=== PATIENT | female | born 1975 | race Caucasian/White ===

== ENCOUNTER 2018-01-29 12:19 | Day surgery (SDC) | payer OTHER, MEDICARE ==
[~2018-01-29] VITALS: Ht 160 cm; Wt 77.5 kg
[~2018-01-29 12:19] MED LIST: ALBIPROI; AMIT50; BUSP5; CHLO10; CLON.5; Crutch1 EACH MISC; ESCI10; FOLI400; HYDMOR4; HYDPAM50; LEVFLO500; MEDR10; MERC50; METHOTREXATE; OMEP20ER; POLY500; PRED10; PROPRANOLOL; Percocet 5-3251 EACH PO; STOOL SOFTENER; TEGA2; TOPI100; TRAZ50; [UNRECOGNIZED DRUG - OTHER]
[2018-01-29] MEDS ORDERED: QUET25 (13:10)
[2018-01-29] MEDS ORDERED: Sudogest30 MG (13:10)
[2018-01-29] MEDS ORDERED: BIOTIN-D1 GM (13:10)
[2018-01-29] MEDS ORDERED: ZOLP5 (13:10)
== END 2018-01-29 15:45 | disposition home or self-care (01) ==
LOC: ORSCSDS 12:19
PROVIDERS: Podiatrist Foot & Ankle Surgery
PROC: 0QSN04Z Reposition Right Metatarsal with Internal Fixation Device, Open Approach (ICD-10-PCS; principal; 2018-01-29 13:30)
DX: S92.351A Displaced fracture of fifth metatarsal bone, right foot, initial encounter for closed fracture (principal); K21.9 Gastro-esophageal reflux disease without esophagitis; Z86.73 Personal history of transient ischemic attack (TIA), and cerebral infarction without residual deficits; R56.9 Unspecified convulsions; Z79.899 Other long term (current) drug therapy
CPT/HCPCS: C1713; J0171; J0690; J1100; J2250; J2405; J2710; J3010; J7120

== ENCOUNTER → 2018-11-10 | Outpatient (CLI) | payer MEDICARE ==
[~2018-11-10] MED LIST changes: +BIOTIN-D1 GM; +ESTR2 PO; +MELO7.5 PO; +PARO20 PO; +QUET25; +QUET300 PO; +Sudogest30 MG; +TOPI100 PO; +ZOLP5 PO
[2018-11-10 18:27] LABS: Alanine Aminotransfer (ALT/SGP 30 U/L (12-78); Albumin, Blood 3.7 g/dL (3.4-5.0); Alk Phos 24 U/L (50-136); Anion Gap 7 mmol/L (6-16); Aspartate Aminotrans (AST/SGOT 18 U/L (12-37); Bilirubin, Total 0.2 mg/dL (0.1-1.0); Blood Urea Nitrogen 19 mg/dL (8-24); Bun/Creatinine Ratio 18.3 (12.0-20.0); CO2, Blood 24 mmol/L (21-32); Calcium, Blood 8.4 mg/dL (8.5-10.1); Chloride, Blood 105 mmol/L (98-108); Creatinine, Blood 1.04 mg/dL (0.40-1.00); Globulin, Blood 3.8 g/dL (2.2-4.0); Glomerular Filtration Rate >60 (60-); Glucose, Blood 119 mg/dL (70-99); Potassium, Blood 3.5 mmol/L (3.5-5.5); Sodium, Blood 136 mmol/L (136-145); Total Protein, Blood 7.5 g/dL (6.4-8.2)
== END ==
LOC: LAB 16:52 → LAB SHORT 16:52
PROVIDERS: Internal Medicine Hematology & Oncology
DX: D50.0 Iron deficiency anemia secondary to blood loss (chronic) (principal)
CPT/HCPCS: 80053

== ENCOUNTER 2018-11-13 23:45 | Emergency (ER) | payer MEDICARE ==
[~2018-11-13] VITALS: Ht 160 cm; Wt 74.8 kg
[~2018-11-13 23:45] MED LIST changes: -ESTR2 PO; -MELO7.5 PO; -PARO20 PO; -QUET300 PO
[2018-11-14] MEDS ORDERED: PARO20 PO (04:30)
[2018-11-14] MEDS ORDERED: QUET300 PO (04:31)
[2018-11-14] MEDS ORDERED: MELO7.5 PO (04:33)
[2018-11-14] MEDS ORDERED: ESTR2 PO (04:34)
[2018-11-14 04:47] LABS: BASOPHILS ABSOLUTE AUTO 0.05 K/mm3 (0.00-0.23); BASOPHILS PERCENT AUTO 1 % (0-2); EOSINOPHILS PERCENT AUTO 1 % (0-6); IMMATURE GRAN ABSOLUTE AUTO 0.04 K/mm3 (0.00-0.10); IMMATURE GRAN PERCENT AUTO 0 % (0-1); LYMPHOCYTES ABSOLUTE AUTO 2.77 K/mm3 (0.84-5.20); LYMPHOCYTES PERCENT AUTO 25 % (21-46); MONOCYTES ABSOLUTE AUTO 0.54 K/mm3 (0.16-1.47); MONOCYTES PERCENT AUTO 5 % (4-13); Mean Corpuscular HGB 27.1 pg (26.0-34.0); Mean Corpuscular HGB Conc 32.4 g/dL (31.5-36.5); Mean Corpuscular Volume 84 fL (80-100); NEUTROPHILS ABSOLUTE AUTO 7.44 K/mm3 (1.96-9.15); NEUTROPHILS PERCENT AUTO 68 % (41-73); RDW Coefficient Variation 18.9 % (11.7-14.2); Red Blood Cell Count 4.06 M/mm3 (3.80-5.20); White Blood Cell Count 10.94 K/mm3 (4.00-11.30)
[2018-11-14 04:52] LABS: Mean Platelet Volume 10.2 fL (9.1-12.4); Platelet Count 202 K/mm3 (150-400)
== END 2018-11-14 06:00 | disposition home or self-care (01) ==
LOC: ER 23:45
PROVIDERS: Emergency Medicine
DX: G43.909 Migraine, unspecified, not intractable, without status migrainosus (principal); Z88.6 Allergy status to analgesic agent; Z88.8 Allergy status to other drugs, medicaments and biological substances; Z79.899 Other long term (current) drug therapy; Z79.891 Long term (current) use of opiate analgesic; Z86.73 Personal history of transient ischemic attack (TIA), and cerebral infarction without residual deficits
CPT/HCPCS: 36415; 85025; 96374; 99283-25; J1885

== ENCOUNTER 2020-08-24 09:03 | Day surgery (SDC) | payer MEDICARE ==
[~2020-08-24] VITALS: Ht 160 cm; Wt 81.4 kg
[~2020-08-24 09:03] MED LIST changes: +ESTR2 PO; +LISI5 PO; +MELO7.5 PO; +PARO20 PO; +QUET300 PO
[2020-08-24] MEDS ORDERED: AMLO5 PO (09:26)
[2020-08-24] MEDS ORDERED: MELATONIN5 M1 PO (09:26)
[2020-08-24] MEDS ORDERED: OMEP20ER PO (09:26)
--- NOTE | 2020-08-24 10:36 | NUR ---
08/24/20 1036 Yajaira Sears BUP 0.5 W/ EPI 1:200,000 MIXED IN OR BY RN
--- NOTE | 2020-08-24 10:58 | NUR ---
08/24/20 1058 Arlen Monzon 02 DC'D AT 1055, O2 SATS REMAIN AT 93% ON RA
[2020-08-24] MEDS ORDERED: VICODIN HP 10-1 EAC1 PO (20:20)
[2020-08-24] MEDS ORDERED: ONDA4ODT SL (21:46)
[2020-08-24] MEDS ORDERED: Percocet 5-3251 EACH PO (21:46)
== END 2020-08-24 11:40 | disposition home or self-care (01) ==
LOC: ORSCSDS 09:03
PROVIDERS: Podiatrist Foot & Ankle Surgery
PROC: 0QBP0ZZ Excision of Left Metatarsal, Open Approach (ICD-10-PCS; principal; 2020-08-24 10:15)
DX: M21.622 Bunionette of left foot (principal); J45.909 Unspecified asthma, uncomplicated; Z86.73 Personal history of transient ischemic attack (TIA), and cerebral infarction without residual deficits; G40.909 Epilepsy, unspecified, not intractable, without status epilepticus; Z79.899 Other long term (current) drug therapy; K21.9 Gastro-esophageal reflux disease without esophagitis
CPT/HCPCS: A9270-GY; J0171; J0690; J2250; J2704; J3010; J7120

== ENCOUNTER 2020-08-24 16:48 | Emergency (ER) | payer MEDICARE ==
[~2020-08-24] VITALS: Ht 160 cm; Wt 80.7 kg
[~2020-08-24 16:48] MED LIST changes: +AMLO5 PO; +MELATONIN5 M1 PO; +OMEP20ER PO
[2020-08-24 17:36] LABS: BASOPHILS ABSOLUTE AUTO 0.06 K/mm3 (0.00-0.23); BASOPHILS PERCENT AUTO 1 % (0-2); EOSINOPHILS PERCENT AUTO 1 % (0-6); Hematocrit 38.3 % (33.0-51.0); Hemoglobin 12.3 g/dL (11.5-16.0); IMMATURE GRAN ABSOLUTE AUTO 0.03 K/mm3 (0.00-0.10); IMMATURE GRAN PERCENT AUTO 0 % (0-1); LYMPHOCYTES ABSOLUTE AUTO 2.95 K/mm3 (0.84-5.20); LYMPHOCYTES PERCENT AUTO 32 % (21-46); MONOCYTES ABSOLUTE AUTO 0.51 K/mm3 (0.16-1.47); MONOCYTES PERCENT AUTO 6 % (4-13); Mean Corpuscular HGB 29.1 pg (26.0-34.0); Mean Corpuscular HGB Conc 32.1 g/dL (31.5-36.5); Mean Corpuscular Volume 91 fL (80-100); Mean Platelet Volume 10.1 fL (9.1-12.4); NEUTROPHILS ABSOLUTE AUTO 5.47 K/mm3 (1.96-9.15); NEUTROPHILS PERCENT AUTO 60 % (41-73); Platelet Count 317 K/mm3 (150-400); RDW Coefficient Variation 13.4 % (11.7-14.2); Red Blood Cell Count 4.23 M/mm3 (3.80-5.20); White Blood Cell Count 9.12 K/mm3 (4.00-11.30)
[2020-08-24 17:52] LABS: Alanine Aminotransfer (ALT/SGP 24 U/L (12-78); Albumin, Blood 3.5 g/dL (3.4-5.0); Albumin/Globulin Ratio 0.8 (0.8-1.8); Alk Phos 26 U/L (50-136); Anion Gap 11 mmol/L (6-16); Aspartate Aminotrans (AST/SGOT 24 U/L (12-37); Bilirubin, Total 0.1 mg/dL (0.1-1.0); Blood Urea Nitrogen 13 mg/dL (8-24); Bun/Creatinine Ratio 14.5 (12.0-20.0); CO2, Blood 18 mmol/L (21-32); Calcium, Blood 8.7 mg/dL (8.5-10.1); Chloride, Blood 108 mmol/L (98-108); Creatinine, Blood 0.89 mg/dL (0.40-1.00); Globulin, Blood 4.2 g/dL (2.2-4.0); Glomerular Filtration Rate >60 (60-); Glucose, Blood 113 mg/dL (70-99); Potassium, Blood 3.6 mmol/L (3.5-5.5); Sodium, Blood 137 mmol/L (136-145); Total Protein, Blood 7.7 g/dL (6.4-8.2)
[2020-08-24 18:22] LABS: Source, Urine Clean Catch
[2020-08-24 18:25] LABS: Appearance, Urine Clear (Clear); Bilirubin, Urine Neg (Neg); Blood, Urine Neg (Neg); Color, Urine Yellow (P-Yellow); Glucose Qualitative, Urine Neg (Neg); Ketones, Urine Neg (Neg); Leukocyte Esterase, Urine Neg (Neg); Nitrite, Urine Neg (Neg); Protein, Urine Neg (Neg); Urobilinogen, Urine NORM (Normal)
[2020-08-24] MEDS ORDERED: VICODIN HP 10-1 EAC1 PO (20:20)
[2020-08-24] MEDS ORDERED: ONDA4ODT SL (21:46)
[2020-08-24] MEDS ORDERED: Percocet 5-3251 EACH PO (21:46)
== END 2020-08-24 22:24 | disposition home or self-care (01) ==
LOC: ER 16:48
PROVIDERS: Physician Assistant
DX: G89.18 Other acute postprocedural pain (principal); M79.672 Pain in left foot; R51.9 Headache, unspecified; Z79.3 Long term (current) use of hormonal contraceptives; Z79.899 Other long term (current) drug therapy
CPT/HCPCS: 36415; 80053; 81003; 85025; 96361; 96374; 96375; 96376; 99283-25; A9270; A9270-GY; J1170; J2405; J7030

== ENCOUNTER → 2022-02-11 | Outpatient (CLI) | payer MEDICARE, BC ==
[~2022-02-11] MED LIST changes: +ONDA4ODT SL; +VICODIN HP 10-1 EAC1 PO
== END | disposition home or self-care (01) ==
LOC: LAB SHORT 08:19 → LAB 08:19
DX: N39.0 Urinary tract infection, site not specified (principal)
CPT/HCPCS: 87077; 87086; 87186

== ENCOUNTER → 2023-07-02 | Outpatient (CLI) | payer MEDICARE, OTHER ==
[~2023-07-02] MED LIST changes: +METF500
[2023-07-02 11:24] LABS: BASOPHILS ABSOLUTE AUTO 0.05 K/mm3 (0.00-0.23); BASOPHILS PERCENT AUTO 0 % (0-2); EOSINOPHILS PERCENT AUTO 0 % (0-6); Hematocrit 40.6 % (33.0-51.0); Hemoglobin 13.5 g/dL (11.5-16.0); IMMATURE GRAN ABSOLUTE AUTO 0.05 K/mm3 (0.00-0.10); IMMATURE GRAN PERCENT AUTO 0 % (0-1); LYMPHOCYTES ABSOLUTE AUTO 1.26 K/mm3 (0.84-5.20); LYMPHOCYTES PERCENT AUTO 10 % (21-46); MONOCYTES ABSOLUTE AUTO 0.78 K/mm3 (0.16-1.47); MONOCYTES PERCENT AUTO 6 % (4-13); Mean Corpuscular HGB 30.3 pg (26.0-34.0); Mean Corpuscular HGB Conc 33.3 g/dL (31.5-36.5); Mean Corpuscular Volume 91 fL (80-100); NEUTROPHILS ABSOLUTE AUTO 10.98 K/mm3 (1.96-9.15); NEUTROPHILS PERCENT AUTO 84 % (41-73); Platelet Count 321 K/mm3 (150-400); RDW Coefficient Variation 13.2 % (11.7-14.2); RDW Standard Deviation 43.7 fL (35.1-46.3); Red Blood Cell Count 4.45 M/mm3 (3.80-5.20); White Blood Cell Count 13.12 K/mm3 (4.00-11.30)
[2023-07-02 11:36] LABS: Albumin, Blood 4.9 g/dL (3.4-5.0); Albumin/Globulin Ratio 1.1 (0.8-1.8); Bilirubin, Total 0.5 mg/dL (0.1-1.0); Bun/Creatinine Ratio 16.4 (12.0-20.0); Calcium, Blood 8.9 mg/dL (8.5-10.1); Creatinine, Blood 1.16 mg/dL (0.40-1.00); Globulin, Blood 4.3 g/dL (2.2-4.0); Potassium, Blood 3.9 mmol/L (3.5-5.5); Total Protein, Blood 9.2 g/dL (6.4-8.2)
== END | disposition home or self-care (01) ==
LOC: LAB SHORT 11:20 → LAB 11:20
PROVIDERS: Family Medicine
DX: E86.0 Dehydration (principal)
CPT/HCPCS: 80053; 85025

== ENCOUNTER → 2025-05-05 | Outpatient (CLI) | payer MEDICARE, OTHER ==
[2025-05-05 18:13] LABS: Creatinine, Urine Random 94.3 mg/dL (27.00-270.00); Microalb/Creat Ratio UR, Rand 8.324 mg/g (0.000-30.000); Microalbumin, Random Urine 7.85 mg/L (0.000-20.000)
== END | disposition home or self-care (01) ==
LOC: LAB 14:45 → LAB SHORT 14:45
PROVIDERS: Physician Assistant
DX: Z13.9 Encounter for screening, unspecified (principal); E78.5 Hyperlipidemia, unspecified; N18.2 Chronic kidney disease, stage 2 (mild); C91.00 Acute lymphoblastic leukemia not having achieved remission
CPT/HCPCS: 82043; 82570

== ENCOUNTER 2025-05-31 14:16 | Day surgery (SDC) | payer MEDICARE, OTHER ==
[~2025-05-31] VITALS: Ht 160 cm; Wt 64.0 kg
[~2025-05-31 14:16] MED LIST changes: -METF500; +METF500 PO
[2025-05-31 15:07] VITALS: BP 104/73
--- NOTE | 2025-05-31 15:31 | NUR ---
05/31/25 153 Connie Yusuf CONFIRMED AND REVIEWED H&P, MEDCICATIONS, ALLERGIES, MEDICAL HISTORY, RESPIRATORY HISTORY, VITAL SIGNS, 3-LEAD EKG, CONSENTS, AND PHYSICIAN ORDERS. PATIENT CONFIRMS NPO STATUS AND AGREES WITH SCHEDULED PROCEDURE. MONITOR INTACT WITH CONTINUOUS PULSE OXIMETRY, CAPNOGRAPHY, 3-LEAD EKG, INTERMITTENT BP. SUPPLEMENTAL O2 TO BE TITRATED THROUGHOUT PROCEDURE TO MAINTAIN O2 SATURATION ABOVE 90%. PATIENT DETERMINED TO BE ASA APPROPRIATE FOR PROPOFOL SEDATION PRIOR TO START OF PROCEDURE BY DR. Howard
--- NOTE | 2025-05-31 15:39 | NUR ---
Ambulatory in Day SurgeryPre-Op teaching done. Pt verbalizes understanding. History, Chart, Medications and Allergies reviewed before start of procedure.Patient confirms NPO status and agrees with scheduled surgery. Patient States Post-Procedure ride home has been arranged.
[2025-05-31] MEDS ORDERED: Midazolam HCl 1MG / ML 2ML Vial ONE (16:10)
[2025-05-31 16:34] VITALS: BP 99/71
[2025-05-31 16:46] VITALS: BP 101/70
--- NOTE | 2025-05-31 16:56 | NUR ---
Discharge instructions reviewed with patient. Patient verbalizes understanding. Copy given to patient to take home. Patient States Post-Procedure ride home has been arranged. PATIENT REFUSED WHEELCHAIR, WAS ESCORTED OUT OF DAY SURGERY BY AT BEDSIDE.
== END 2025-05-31 23:00 | disposition home or self-care (01) ==
LOC: ORSCMMR 14:16 → ORD 15:30 → ORSCMMR 15:30
PROVIDERS: Family Medicine
PROC: 0DBN8ZX Excision of Sigmoid Colon, Via Natural or Artificial Opening Endoscopic, Diagnostic (ICD-10-PCS; principal; 2025-05-31 15:30)
DX: Z12.11 Encounter for screening for malignant neoplasm of colon (principal); K51.40 Inflammatory polyps of colon without complications; E11.9 Type 2 diabetes mellitus without complications; Z79.84 Long term (current) use of oral hypoglycemic drugs; Z79.899 Other long term (current) drug therapy; C91.00 Acute lymphoblastic leukemia not having achieved remission; E78.5 Hyperlipidemia, unspecified; F31.9 Bipolar disorder, unspecified; F41.9 Anxiety disorder, unspecified
CPT/HCPCS: 82947; 88305; J2250; J2704; J7120